=== PATIENT | female | born 1990 ===

== ENCOUNTER 2021-01-17 21:17 | Inpatient (IN) | payer OTHER ==
[~2021-01-17] VITALS: Ht 165.1 cm; Wt 113.3 kg
[2021-01-17] MEDS ORDERED: OXYTOCIN 30U/ 0.9% NaCL 500ML 500 ML ONE (22:16)
[2021-01-17] MEDS ORDERED: METOCLOPRAMIDE 5 MG/ML, 2ML ONE (22:16)
[2021-01-17] MEDS ORDERED: SODIUM CITRATE/CITRIC ACID 15 ML UDC ONE (22:17)
[2021-01-17] MEDS ORDERED: FENTANYL PF 100 MCG/2ML ONE (22:36)
[2021-01-17 22:50] LABS: MEAN CORPUSCULAR HEMOGLOBIN 27.7 pg (27.0-34.8); MEAN CORPUSCULAR HGB CONC 33.5 g/dL (32.4-35.8); MEAN PLATELET VOLUME 10.2 fL (7.4-10.4); PLATELET COUNT 237 x10^3/uL (130-400); RED BLOOD COUNT 4.57 x10^6/uL (3.82-5.3); RED CELL DISTRIBUTION WIDTH 15.1 % (9.6-15.2)
[2021-01-17 22:51] LABS: MD YES
[2021-01-17 22:54] LABS: ALBUMIN 3.1 g/dL (3.4-5.0); ANION GAP 23 mmol/L (5-15); CHLORIDE 109 mmol/L (98-107)
[2021-01-17 22:57] LABS: ALANINE AMINOTRANSFERASE 42 U/L (12-78); ALKALINE PHOSPHATASE 193 U/L (45-117); BILIRUBIN,TOTAL 0.8 mg/dL (0.2-1.0); TOTAL PROTEIN 7.7 g/dL (6.4-8.2)
[2021-01-17 23:23] LABS: MICROSCOPIC INDICATED
[2021-01-17] MEDS ORDERED: FENTANYL/BUPIV./NS/PF 0 ML EPIDCONT ONE (23:28)
[2021-01-17] MEDS ORDERED: BUPIVACAINE 0.25% ONE (23:28)
[2021-01-17 23:43] LABS: BAND#(MANUAL) 0.73 x10^3/uL; BANDS%(MANUAL) 4 % (0-7); LYMPHS% (MANUAL) 11 % (22-44); METAMYELOCYTES# (MANUAL) 0.18 x10^3/uL (0-0); METAMYELOCYTES% (MANUAL) 1 % (0-1); MONOS#(MANUAL) 1.09 x10^3/uL (0.3-2.7); MONOS% (MANUAL) 6 % (2-9); MYELOCYTES# (MANUAL) 0.73 x10^3/uL (0-0); MYELOCYTES% (MANUAL) 4 % (0-0); SEG#(MANUAL) 13.47 x10^3/uL (1.8-6.8); SEGS% (MANUAL) 74 % (42-75)
[2021-01-17 23:48] LABS: <PLATELET ESTIMATE> ADEQUATE; <PLT MORPHOLOGY> NORMAL PLT MORPH; ANISOCYTOSIS 1+; POLYCHROMASIA 1+
[2021-01-18] MEDS ORDERED: D5%-LACTATED RINGERS 1,000 ML IV SCH
[2021-01-18] MEDS ORDERED: TERBUTALINE 1 MG/ML, 1ML SQ PRN
[2021-01-18] MEDS ORDERED: METOCLOPRAMIDE 5 MG/ML, 2ML IVPush PRN
[2021-01-18] MEDS ORDERED: CALCIUM CARBONATE 500 MG TAB.CHEW PO PRN
[2021-01-18] MEDS ORDERED: OXYTOCIN 30U/ 0.9% NaCL 500ML 500 ML IV ONE
[2021-01-18] MEDS ORDERED: FENTANYL PF 100 MCG/2ML IVPush PRN
[2021-01-18] MEDS ORDERED: TERBUTALINE 1 MG/ML, 1ML IVPush PRN
[2021-01-18] MEDS ORDERED: SODIUM CITRATE/CITRIC ACID 30 ML UDC PO PRN
[2021-01-18 00:13] LABS: ACETONE, SERUM Large (80mg/dL) (Negative)
[2021-01-18] MEDS ORDERED: POTASSIUM CHLORIDE 20 MEQ TAB.ER.PRT ONE (00:15)
[2021-01-18] MEDS ORDERED: POTASSIUM CHLORIDE 20 MEQ in SODIUM CHLORIDE 0.9% 250 ML IV ONE (00:30)
[2021-01-18] MEDS ORDERED: POTASSIUM CHLORIDE 20 MEQ TAB.ER.PRT PO ONE ×4 (00:30→14:30)
[2021-01-18] MEDS ORDERED: LIDOCAINE/MPF 2%-EPI 1:200K, 20 ML ONE (00:48)
[2021-01-18] MEDS ORDERED: OXYTOCIN 10 UNITS/ML, 1ML ONE ×4 (00:49)
[2021-01-18] MEDS ORDERED: CEFAZOLIN 1,000 MG ONE ×2 (00:49)
[2021-01-18 01:12] LABS: ALANINE AMINOTRANSFERASE 34 U/L (12-78); ALBUMIN 2.4 g/dL (3.4-5.0); ANION GAP 21 mmol/L (5-15); CALCIUM 8.5 mg/dL (8.5-10.1); CHLORIDE 112 mmol/L (98-107); CREATININE 0.72 mg/dL (0.55-1.02)
[2021-01-18 01:15] LABS: ALKALINE PHOSPHATASE 159 U/L (45-117); BILIRUBIN,TOTAL 0.7 mg/dL (0.2-1.0); TOTAL PROTEIN 6.1 g/dL (6.4-8.2)
[2021-01-18] MEDS ORDERED: NEWBORN KIT ONE (01:38)
[2021-01-18] MEDS ORDERED: PHENYLEPHRINE 10 MG/ML ONE (01:41)
[2021-01-18] MEDS ORDERED: ENALAPRILAT 1.25 MG/ML, 2ML IVPush PRN (03:00)
[2021-01-18] MEDS ORDERED: ACETAMINOPHEN 325 MG TABLET PO PRN (03:00)
[2021-01-18] MEDS ORDERED: REGULAR INSULIN 100 UNITS in SODIUM CHLORIDE 0.9% 99 ML IV PRN ×2 (03:00)
[2021-01-18] MEDS ORDERED: GLUCAGON 1 MG IM PRN (03:00)
[2021-01-18] MEDS ORDERED: LACTATED RINGERS 1,000 ML IV SCH ×3 (03:00)
[2021-01-18] MEDS ORDERED: METHYLERGONOVINE 0.2 MG/ML IM PRN (03:00)
[2021-01-18] MEDS ORDERED: OXYcodone IR 5MG TABLET PO PRN (03:00)
[2021-01-18] MEDS ORDERED: ONDANSETRON 2MG/ML, 2ML IV PRN (03:00)
[2021-01-18] MEDS ORDERED: DEXTROSE 50%, 50ML SYRINGE IVPush PRN (03:00)
[2021-01-18] MEDS ORDERED: DEXTROSE 4 GM TAB.CHEW PO PRN (03:00)
[2021-01-18] MEDS ORDERED: SIMETHICONE 80 MG CHEW TAB PO PRN (03:00)
[2021-01-18] MEDS ORDERED: OXYcodone 5 MG/5 ML ORAL.SOL UDC PO PRN (03:30)
[2021-01-18] MEDS ORDERED: DIPHENHYDRAMINE 50 MG/ML, 1ML IVPush PRN (03:30)
[2021-01-18] MEDS ORDERED: FENTANYL PF 100 MCG/2ML IV PRN ×2 (03:30)
[2021-01-18] MEDS ORDERED: ONDANSETRON 2MG/ML, 2ML IVPush PRN ×2 (03:30)
[2021-01-18] MEDS ORDERED: OMEP20TA62 PO (03:43)
[2021-01-18] MEDS ORDERED: PREN1TAB62 PO (03:43)
[2021-01-18] MEDS: OXYTOCIN 30U/ 0.9% NaCL 500ML 500 ML IV SCH ×3 (03:58→22:33)
[2021-01-18] MEDS: D5%-0.45NACL+KCL 20MEQ 1,000 ML IV SCH ×3 (04:32→21:09)
[2021-01-18 04:46] LABS: ANION GAP 18 mmol/L (5-15); CALCIUM 8.5 mg/dL (8.5-10.1); CHLORIDE 113 mmol/L (98-107); CREATININE 0.66 mg/dL (0.55-1.02)
[2021-01-18] MEDS: HYDROmorphone 1 MG/ML, 1ML INJ IVPush PRN ×2 (05:28→07:41)
[2021-01-18] MEDS ORDERED: SODIUM PHOSPHATE 20 MMOL in SODIUM CHLORIDE 0.9% 500 ML IV ONE (07:30)
[2021-01-18] MEDS: PRENATAL VIT/IRON/FA 1 EACH TABLET PO SCH (08:11)
[2021-01-18] MEDS: SODIUM CHLORIDE FLUSH 10ML SYR IVF SCH ×2 (09:00→21:00)
[2021-01-18 09:12] LABS: ANION GAP 13 mmol/L (5-15); CALCIUM 8.3 mg/dL (8.5-10.1); CHLORIDE 115 mmol/L (98-107); CREATININE 0.64 mg/dL (0.55-1.02)
[2021-01-18] MEDS: OXYcodone/APAP 5/325MG TABLET PO PRN ×4 (10:23→22:33)
[2021-01-18] MEDS: ENOXAPARIN 40 MG/0.4 ML SQ SCH (14:00)
[2021-01-18 14:01] LABS: ANION GAP 11 mmol/L (5-15); CALCIUM 8.3 mg/dL (8.5-10.1); CHLORIDE 115 mmol/L (98-107); CREATININE 0.56 mg/dL (0.55-1.02)
[2021-01-18 17:10] LABS: ANION GAP 10 mmol/L (5-15); CALCIUM 8.1 mg/dL (8.5-10.1); CHLORIDE 115 mmol/L (98-107)
[2021-01-18 21:18] LABS: ANION GAP 8 mmol/L (5-15); CALCIUM 8.3 mg/dL (8.5-10.1); CHLORIDE 117 mmol/L (98-107); CREATININE 0.54 mg/dL (0.55-1.02)
[2021-01-19 01:44] LABS: ANION GAP 11 mmol/L (5-15); CALCIUM 8.1 mg/dL (8.5-10.1); CHLORIDE 118 mmol/L (98-107); CREATININE 0.41 mg/dL (0.55-1.02)
[2021-01-19] MEDS: D5%-0.45NACL+KCL 20MEQ 1,000 ML IV SCH (03:06)
[2021-01-19] MEDS: OXYcodone/APAP 5/325MG TABLET PO PRN ×3 (03:06→10:34)
[2021-01-19 05:29] LABS: BASOPHILS % (AUTO) 1 % (0-1); EOSINOPHILS % (AUTO) 1 % (1-7); LYMPHOCYTES % (AUTO) 17 % (22-44); MEAN CORPUSCULAR HEMOGLOBIN 28.2 pg (27.0-34.8); MEAN CORPUSCULAR HGB CONC 34.9 g/dL (32.4-35.8); MEAN PLATELET VOLUME 9.5 fL (7.4-10.4); MONOCYTES % (AUTO) 11 % (2-9); NEUTROPHILS % (AUTO) 71 % (42-75); PLATELET COUNT 155 x10^3/uL (130-400); RED BLOOD COUNT 3.38 x10^6/uL (3.82-5.3)
[2021-01-19 05:35] LABS: MD NO
[2021-01-19 05:37] LABS: ANION GAP 11 mmol/L (5-15); CALCIUM 8.4 mg/dL (8.5-10.1); CHLORIDE 117 mmol/L (98-107); CREATININE 0.44 mg/dL (0.55-1.02)
[2021-01-19] MEDS ORDERED: MAGNESIUM SULFATE PMX 4GM/100M 100 ML IVPB ONE (07:30)
[2021-01-19] MEDS ORDERED: SODIUM PHOSPHATE 20 MMOL in SODIUM CHLORIDE 0.9% 500 ML IV ONE (07:30)
[2021-01-19] MEDS: OXYTOCIN 30U/ 0.9% NaCL 500ML 500 ML IV SCH ×2 (07:54→19:00)
[2021-01-19] MEDS: SODIUM CHLORIDE FLUSH 10ML SYR IVF SCH ×2 (07:55→21:15)
[2021-01-19] MEDS: PRENATAL VIT/IRON/FA 1 EACH TABLET PO SCH (07:55)
[2021-01-19] MEDS: POTASSIUM CHLORIDE 20 MEQ TAB.ER.PRT PO SCH ×2 (08:03→20:02)
[2021-01-19] MEDS ORDERED: MIDAZOLAM 1 MG/ML, 2ML IVPush ONE (10:00)
[2021-01-19 10:18] LABS: ANION GAP 11 mmol/L (5-15); CALCIUM 8.4 mg/dL (8.5-10.1); CHLORIDE 115 mmol/L (98-107); CREATININE 0.57 mg/dL (0.55-1.02)
[2021-01-19] MEDS ORDERED: INSULIN LISPRO 100 UNITS/ML, PEN SQ-INSULIN SCH (11:00)
[2021-01-19 14:45] VITALS: BP 114/75
[2021-01-19] MEDS: OXYcodone IR 5MG TABLET PO PRN ×2 (15:51→20:02)
[2021-01-19] MEDS: ENOXAPARIN 40 MG/0.4 ML SQ SCH (15:51)
[2021-01-19] MEDS ORDERED: POTASSIUM CHLORIDE 20 MEQ TAB.ER.PRT PO ONE (20:00)
[2021-01-19 20:10] VITALS: BP 113/79
[2021-01-20] VITALS: BP 112/75
[2021-01-20 04:17] VITALS: BP 121/79
[2021-01-20] MEDS: OXYcodone IR 5MG TABLET PO PRN ×5 (04:17→21:50)
[2021-01-20] MEDS: OXYTOCIN 30U/ 0.9% NaCL 500ML 500 ML IV SCH ×2 (05:00→14:54)
[2021-01-20 05:54] LABS: BASOPHILS % (AUTO) 1 % (0-1); EOSINOPHILS % (AUTO) 2 % (1-7); LYMPHOCYTES % (AUTO) 23 % (22-44); MEAN CORPUSCULAR HEMOGLOBIN 28.3 pg (27.0-34.8); MEAN CORPUSCULAR HGB CONC 34.4 g/dL (32.4-35.8); MEAN PLATELET VOLUME 9.4 fL (7.4-10.4); MONOCYTES % (AUTO) 9 % (2-9); NEUTROPHILS % (AUTO) 66 % (42-75); PLATELET COUNT 178 x10^3/uL (130-400); RED BLOOD COUNT 3.36 x10^6/uL (3.82-5.3); RED CELL DISTRIBUTION WIDTH 15.4 % (9.6-15.2)
[2021-01-20 06:03] LABS: MD NO
[2021-01-20 06:04] LABS: CALCIUM 7.9 mg/dL (8.5-10.1); CHLORIDE 112 mmol/L (98-107)
[2021-01-20 06:10] LABS: ALANINE AMINOTRANSFERASE 27 U/L (12-78); ALBUMIN 2.1 g/dL (3.4-5.0); ALKALINE PHOSPHATASE 132 U/L (45-117); ANION GAP 12 mmol/L (5-15); BILIRUBIN,TOTAL 0.4 mg/dL (0.2-1.0); CREATININE 0.52 mg/dL (0.55-1.02); TOTAL PROTEIN 5.3 g/dL (6.4-8.2)
[2021-01-20 06:23] LABS: ACETONE, SERUM Negative (Negative)
[2021-01-20] MEDS ORDERED: SODIUM PHOSPHATE 30 MMOL in SODIUM CHLORIDE 0.9% 500 ML IV ONE (07:30)
[2021-01-20] MEDS ORDERED: PRENATAL VIT/IRON/FA 1 EACH TABLET ONE (08:09)
[2021-01-20 08:15] VITALS: BP 119/82
[2021-01-20] MEDS: DOCUSATE 100 MG CAPSULE PO PRN ×2 (08:23→21:49)
[2021-01-20] MEDS: PRENATAL VIT/IRON/FA 1 EACH TABLET PO SCH (08:23)
[2021-01-20] MEDS: SODIUM CHLORIDE FLUSH 10ML SYR IVF SCH ×2 (08:26→21:53)
[2021-01-20 13:38] VITALS: BP 106/73
[2021-01-20] MEDS: ENOXAPARIN 40 MG/0.4 ML SQ SCH (15:05)
[2021-01-20] MEDS: OXYcodone/APAP 5/325MG TABLET PO PRN (16:29)
[2021-01-20 16:31] VITALS: BP 103/73
[2021-01-20 20:00] VITALS: BP 113/77
[2021-01-20] MEDS: FERROUS GLUCONATE 324 MG TABLET PO SCH (21:49)
[2021-01-20] MEDS ORDERED: BISACODYL 5 MG EC TABLET PO ONE (22:30)
[2021-01-21] MEDS: OXYTOCIN 30U/ 0.9% NaCL 500ML 500 ML IV SCH ×3 (01:00→21:00)
[2021-01-21] MEDS: OXYcodone/APAP 5/325MG TABLET PO PRN ×4 (02:59→20:35)
[2021-01-21 03:00] VITALS: BP 110/77
[2021-01-21 05:21] LABS: BASOPHILS % (AUTO) 0 % (0-1); EOSINOPHILS % (AUTO) 2 % (1-7); LYMPHOCYTES % (AUTO) 26 % (22-44); MEAN CORPUSCULAR HEMOGLOBIN 27.8 pg (27.0-34.8); MEAN CORPUSCULAR HGB CONC 33.8 g/dL (32.4-35.8); MEAN PLATELET VOLUME 8.9 fL (7.4-10.4); MONOCYTES % (AUTO) 8 % (2-9); NEUTROPHILS % (AUTO) 64 % (42-75); PLATELET COUNT 184 x10^3/uL (130-400); RED BLOOD COUNT 3.48 x10^6/uL (3.82-5.3); RED CELL DISTRIBUTION WIDTH 15.4 % (9.6-15.2)
[2021-01-21 05:23] LABS: MD NO
[2021-01-21 05:25] LABS: ALBUMIN 2.1 g/dL (3.4-5.0); ANION GAP 8 mmol/L (5-15); CALCIUM 7.9 mg/dL (8.5-10.1); CHLORIDE 110 mmol/L (98-107)
[2021-01-21 05:29] LABS: ALANINE AMINOTRANSFERASE 28 U/L (12-78); ALKALINE PHOSPHATASE 128 U/L (45-117); BILIRUBIN,TOTAL 0.4 mg/dL (0.2-1.0); CREATININE 0.45 mg/dL (0.55-1.02); TOTAL PROTEIN 5.2 g/dL (6.4-8.2)
[2021-01-21 07:10] VITALS: BP 115/79
[2021-01-21] MEDS: PRENATAL VIT/IRON/FA 1 EACH TABLET PO SCH (08:16)
[2021-01-21] MEDS: DOCUSATE 100 MG CAPSULE PO PRN (08:18)
[2021-01-21] MEDS: SODIUM CHLORIDE FLUSH 10ML SYR IVF SCH ×2 (09:00→21:00)
[2021-01-21] MEDS ORDERED: POTA20TA6 PO (12:55)
[2021-01-21] MEDS ORDERED: OXYC1TAB14 PO (13:02)
[2021-01-21] MEDS ORDERED: POTASSIUM CHLORIDE 20 MEQ TAB.ER.PRT PO SCH ×2 (14:00→21:00)
[2021-01-21] MEDS: ENOXAPARIN 40 MG/0.4 ML SQ SCH (14:19)
[2021-01-21] MEDS: FERROUS GLUCONATE 324 MG TABLET PO SCH (17:47)
[2021-01-21 19:47] VITALS: BP 100/63
[2021-01-21 20:22] VITALS: BP 138/83
[2021-01-21] MEDS ORDERED: POTASSIUM CHLORIDE 20 MEQ TAB.ER.PRT PO ONE (21:00)
[2021-01-22] MEDS: OXYcodone/APAP 5/325MG TABLET PO PRN (05:56)
[2021-01-22 05:59] LABS: CHLORIDE 109 mmol/L (98-107)
[2021-01-22 06:06] LABS: ALANINE AMINOTRANSFERASE 32 U/L (12-78); ALBUMIN 2.2 g/dL (3.4-5.0); ALKALINE PHOSPHATASE 129 U/L (45-117); ANION GAP 6 mmol/L (5-15); BILIRUBIN,TOTAL 0.4 mg/dL (0.2-1.0); CREATININE 0.45 mg/dL (0.55-1.02); TOTAL PROTEIN 5.4 g/dL (6.4-8.2)
[2021-01-22] MEDS: OXYTOCIN 30U/ 0.9% NaCL 500ML 500 ML IV SCH (07:00)
[2021-01-22 07:20] VITALS: BP 119/81
[2021-01-22] MEDS: DOCUSATE 100 MG CAPSULE PO PRN (07:54)
[2021-01-22] MEDS: PRENATAL VIT/IRON/FA 1 EACH TABLET PO SCH (07:54)
[2021-01-22] MEDS: SODIUM CHLORIDE FLUSH 10ML SYR IVF SCH (09:00)
== END 2021-01-22 12:00 | disposition home or self-care (01) | DRG 787 ==
LOC: LDIP 21:49 → CSU 01-18 02:44 → 2NW 01-19 14:35
PROVIDERS: ADMIT Obstetrics & Gynecology Maternal & Fetal Medicine; ATTEND Obstetrics & Gynecology Maternal & Fetal Medicine
PROC: 10D00Z1 Extraction of Products of Conception, Low, Open Approach (ICD-10-PCS; principal; 2021-01-20)
DX: O24.424 Gestational diabetes mellitus in childbirth, insulin controlled (principal); E87.3 Alkalosis; K31.1 Adult hypertrophic pyloric stenosis; O99.12 Other diseases of the blood and blood-forming organs and certain disorders involving the immune mechanism complicating childbirth; E87.2 Acidosis; Z20.822 Contact with and (suspected) exposure to COVID-19; O40.3XX0 Polyhydramnios, third trimester, not applicable or unspecified; O99.02 Anemia complicating childbirth; D50.9 Iron deficiency anemia, unspecified; D72.828 Other elevated white blood cell count; E83.39 Other disorders of phosphorus metabolism; E83.42 Hypomagnesemia; E87.6 Hypokalemia; K21.9 Gastro-esophageal reflux disease without esophagitis; K59.00 Constipation, unspecified; O99.214 Obesity complicating childbirth; O99.284 Endocrine, nutritional and metabolic diseases complicating childbirth; O99.62 Diseases of the digestive system complicating childbirth; Z83.3 Family history of diabetes mellitus; Z3A.33 33 weeks gestation of pregnancy; Z37.0 Single live birth; Z91.013 Allergy to seafood
CPT/HCPCS: 36415; 36600; 80048; 80053; 80320; 81001; 82010; 82803; 82962; 83036; 83605; 83735; 84100; 84443; 85025; 86592; 86850; 86900; 86923; 87081; 93005; G0378; J0690; J1170; J1650; J3010; J3480; G0480; J2370; J2590; J2765; J3475; J7040; J7050; J7120